=== PATIENT | male | born 1950 | race Caucasian/White ===

== ENCOUNTER 2025-08-07 10:22 | Emergency (ER) | payer MEDICARE, OTHER, SELFPAY ==
--- NOTE | 2025-08-07 10:24 | ED.WOUNDLAC ---
HPI - Wound/Laceration General Chief Complaint: Wound/Laceration Stated Complaint: Laceration Time Seen by Provider: 08/07/25 10:23 Source: patient Mode of arrival: ambulatory Limitations: no limitations History of Present Illness HPI narrative: Patient is a 74-year-old male with a right hand wound laceration after an accident at home. No other issues. His tetanus booster needed today. No other issues. Area will not stop bleeding. Onset (ago): day(s) (One) Location: other (Right palm) Place: home Patient tetanus UTD: No Context: accidental and fall Associated symptoms: pain Treatments prior to arrival: bandage Related Data Home Medications ?Medication ?Instructions ?Recorded ?Confirmed ?Last Taken ?Type amlodipine 10 mg tablet mg 08/07/25 Unknown History magnesium 200 mg tablet 200 mg PO DAILY 08/07/25 08/07/25 Unknown History tamsulosin 0.4 mg capsule mg PO 08/07/25 Unknown History Allergies Allergy/AdvReac Type Severity Reaction Status Date / Time No Known Allergies Allergy Verified 08/07/25 11:14 Review of Systems Review of Systems: All systems reviewed & are unremarkable except as noted in HPI and below Constitutional: Constitutional: Reports no additional constitutional complaints Eyes: Eyes: Reports no additional eye complaints ENT: Reports system reviewed and no additional complaints, except as documented Cardiovascular: Cardiovascular: Reports no additional cardiovascular complaints Respiratory: Respiratory: Reports no additional respiratory complaints Gastrointestinal: Gastrointestinal: Reports no additional gastrointestinal complaints Genitourinary: Genitourinary: Reports no additional male genitourinary complaints Musculoskeletal: Musculoskeletal: Reports no additional musculoskeletal complaints Integumentary/Breasts: Skin/Breast: Reports system reviewed and no additional complaints, except as docu Neurologic: Reports system reviewed and no additional complaints, except as documented Psychiatric: Psychiatric: Reports no additional psychiatric complaints Endocrine: Endocrine: Reports no additional endocrine complaints Hematologic/Lymphatic: Hematologic/Lymphatic: Reports no additional hematologic/lymphatic complaints Allergic/Immunologic: Allergic/Immunologic: Reports no additional allergic/immunologic complaints Exam Const: General: healthy appearing Nutritional Appearance: well nourished Orientation/consciousness: patient oriented x3 HENMT: Head: normal to inspection Ears: external ears normal Face/Nose/Sinus: Normal external nose present Eyes: Conjunctivae: conjunctivae normal Pupils: Equal, round and reactive pupils present EOM: EOMs intact bilaterally Neck: Neck: normal visual inspection Chest: Chest palpation & inspection: normal inspection of the chest Resp: Effort & Inspection: normal respiratory effort and not labored Auscultation: clear to auscultation bilaterally and no crackles Cardio: Rate: regular rate Rhythm: regular rhythm Heart sounds: no murmurs GI: Inspection: non-distended GI Palp: Yes Soft to palpation and No Tenderness to palpation present (GI) Auscultation: normal bowel sounds Back/Spine/Pelvis: Back: no CVA tenderness Skin: General skin exam: normal color Rashes: no rashes Wounds: wound noted Other: Right hand flexor surface/palm mid palm has a 3.5 cm linear laceration with some irregularity and soft tissue/fat appreciated for depth and slight bleeding; patient also had a right eyebrow and right knee abrasion all from the fall today Neuro: General: patient oriented x3, moves all extremities and no meningeal signs Extrem: General: normal to inspection Psych: Mental Status: mental status grossly normal Affect: normal affect Attitude: cooperative Course Vital Signs Vital signs: Vital Signs Temperature 36.9 C 08/07/25 11:17 Pulse Rate 78 08/07/25 11:17 Respiratory Rate 16 08/07/25 11:17 Blood Pressure 131/59 L 08/07/25 11:17 Pulse Oximetry 98 08/07/25 11:17 Oxygen Delivery Room Air 08/07/25 11:17 Temperature 36.9 C 08/07/25 11:17 Pulse Rate 78 08/07/25 11:17 Respiratory Rate 16 08/07/25 11:17 Blood Pressure 131/59 L 08/07/25 11:17 Pulse Oximetry 98 08/07/25 11:17 Oxygen Delivery Room Air 08/07/25 11:17 Procedures Other Procedure Procedure 1: Other Procedure: Right palm laceration: Area cleaned with chlorhexidine the/iodine, anesthesia with 6 cc lidocaine, x7 running stitching 4-0 nylon PS 3, x1 simple suture same string, antibiotic ointment and a bandage placed, patient tolerated procedure well and no complications MDM - Wound/Laceration MDM Narrative Medical decision making narrative: Patient is a 74-year-old male with a right palm laceration after home accident. Suture area closed. Tetanus booster. Discharge Plan Discharge Clinical Impression: Hand laceration Qualifiers: Encounter type: initial encounter Foreign body presence: without foreign body Laterality: right Qualified Code(s): S61.411A - Laceration without foreign body of right hand, initial encounter Patient Disposition: Home Condition: Stable Instructions: Antibiotic Form, Laceration (DC) Additional Instructions: Please have stitches removed in 8-10 days. Use triple antibiotic ointment on the area daily. Discussed with your primary doctor if your still having trouble moving fingers or making a fist in the next few days. You will need an MRI of this hand to look for tendons and ligaments. Patient Language: Ivorian Prescriptions: New cephalexin 500 mg capsule 500 mg PO BID 7 Days Qty: 14 0RF No Action tamsulosin 0.4 mg capsule PO amlodipine 10 mg tablet magnesium 200 mg tablet 200 mg PO DAILY Follow-up/Referrals: Harms,Aries Tilley M.D. [Primary Care Provider] Time of Disposition: 12:46
--- OUTSIDE RECORDS SUMMARY | 2025-08-07 11:07 | XMS_ITS | Clinical Summary ---
Author Organization [facility] Address [address] [place] [address] Care Team Providers Care Brick Sorter Name Role Phone Aries Morales MD Primary Care Provider [phone] Allergies No known active allergies Medications albuterol HFA (Ventolin HFA) 90 mcg/actuation inhalerIndication s:Wheezing Inhale 2 puffs every 4 (four) hours as needed for wheezing or shortness of breath 8 g 5 0 Active Breo Ellipta 100-25 mcg/dose diskus inhaler 0 Active magnesium 30 mg tablet Take 1 tablet (30 mg total) by mouth 2 (two) times a day Active benzonatate (TESSALON) 100 mg capsuleIndication s:Cough Take 1 capsule (100 mg total) by mouth 3 (three) times a day as needed for cough 42 capsule 4 Active amLODIPine (NORVASC) 10 mg tabletIndications :Essential hypertension Take 1 tablet (10 mg total) by mouth daily 90 tablet 2 5 Active tamsulosin (FLOMAX) 0.4 mg extended release capsule TAKE 1 CAPSULE BY MOUTH EVERY DAY 90 capsule 3 5 Active tirzepatide, weight loss, (Zepbound) 2.5 mg/0.5 mL pen injector Inject 0.5 mL (2.5 mg total) under the skin once a week 2 mL 5 Active Active Problems Problem Noted Date Diagnosed Date Class 2 severe obesity due t o excess calories with serious comorbidity and body mass index (BMI) of 39.0 to 39.9 in adult 01/23/2024 Assessment & Plan (02/05/2025 9:46 AM CDT): Encouraged heart healthy diet and lifestyle. Advised 150 min/week of aerobic exercise. Assessment & Plan (01/23/2024 11:36 AM CDT): Reviewed lifestyle recommendations. Reviewed healthy weight recommendations. Discussed weight loss medications. Handouts provided with dietary recommendations. Will continue to monitor. Benign prostatic hyperplasia with nocturia 01/22 Assessment & Plan (02/05/2025 9:46 AM CDT): Stable and well controlled. Will continue on Flomax. Will continue to monitor. Assessment & Plan (01/23/2024 11:37 AM CDT): Symptomatically controlled with Flomax and will continue. PSA today as well. Encounter for screening for lipoid disorders Assessment & Plan (01/23/2024 11:34 AM CDT): Reviewed lipid panel. Looks good. Again reviewed lifestyle recommendations. Will continue to monitor. Essential hypertension 04/29/2020 Assessment & Plan (02/05/2025 9:46 AM CDT): Blood pressure stable and well controlled. Will continue on Amlodipine and refill. Will continue to monitor. Orders: amLODIPine (NORVASC) 10 mg tablet; Take 1 tablet (10 mg total) by mouth daily Assessment & Plan (01/23/2024 11:34 AM CDT): Better when rechecked by me. Reviewed lifestyle recommendations and handouts provided. Continue amlodipine. Will continue to monitor. Assessment & Plan (11/03/2022 9:16 AM BRANCH LEAD): Condition is stable Discussed/ordered labs, encouraged healthy, low carbohydrate lifestyle and at least 150min/week of exercise, continue on amlodipine 10 mg daily. Assessment & Plan (04/29/2020 9:39 AM CDT): Well controlled with current medication. 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 Encouraged patient to use inhalers PRN and follow up as needed. Severe obstructive sleep apnea 05/04/2019 Assessment & Plan (02/05/2025 9:46 AM CDT): Continues to use CPAP with great relief and no daytime fatigue. Will continue to monitor Assessment & Plan (01/23/2024 11:35 AM CDT): 100% compliant with CPAP and will continue. 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 Uses albuterol on a daily bases with some relief after talking with patient, it is most likely that he has obstructive sleep apnea. I recommend that he follow up with Dr. Morales and get a sleep study and some pulmonary function test. Will treat him with a course of steroids And antibiotics will give a DuoNeb treatment today Take your antibiotic as directed You may take a cough suppressant to calm your cough (dayquil, delsym, or nyquil) If your cough is productive or you have tight chest congestion with thick mucus- you can use a cough expectorant like Mucinex Benadryl/Zyrtec can be used to dry up a runny nose along with a nasal spray like azelastine or mometasone.. The use of Chlorpheniramine (antihistamine) plus pseudoephedrine (decongestant) has been proven to be helpful. Avoid environmental triggers and allergen Drink plenty of fluids and get plenty of rest Tylenol/Motrin for pain/fever If you are not better in the next 5 days, follow up w PCP. Bilateral impacted cerumen 02/22/2019 1 12/26/2019 Assessment & Plan (02/22/2019 10:36 AM CDT): Excessive Ear Wax Prevention Cerumen accumulation or excessive ear wax can cause symptoms like-Hearing loss ?Earache ?Ear fullness ?Itchiness ?Reflex cough ?Dizziness ?Tinnitus Normal ears use a cotton ball dipped in mineral oil, olive oil, Baby oil, or Peculiar oil and place in the external canal for 10 to 20 minutes once per week. For Chronic cerumen impactions can perform on a scheduled baseis-3 drops of olive oil or Baby oil in each ear, three times daily for Three weeks, Three times per year. Routine cleaning of the ears by a health professional every 6 to 12 months is also suggested. Patients should be instructed that chronic use of cotton swabs or cerumenolytics should not be performed. Cerumenolytics are safe to use in patients with NO history of infections, perforations, or otologic surgery. Cerumenolytics should be avoided if tympanic membrane damage is suspected. If a patient has a history of drainage from the ear, ear pain, or frequent ear infections earlier in life, then the tympanic membrane may be impaired and cerumenolytics should not be employed. If safe for you, use Debrox drops, Hydrogen peroxide or Benzalkonium Chloride softening agents Wheezing 02/22/2019 10/25/2020 Sleep disturbances 02/22/2019 0 Encounters Date Type Department Care Team Description 07/09/2025 10:30 AM CDT Office Visit [facility] [address] [place] [address] [address] [place] [address] Vandana Maher MD Severe obstructive sleep apnea (Primary Dx); Hypersomnia; Severe obesity (BMI 35.0-35.9 with comorbidity) (HCC) from Last 3 Months Immunizations Immunization Administration Dates Next Due Hep B Vaccine 01/02/2018,08/29/2017,06/27/2017 Influenza, Quad, Adjuvantate d, Intramuscular 07/18/2023,09/01/2021 Influenza, Quadrivalent, Hig h Dose, Preservative Free, Intrr 06/30/2022,08/02/2020 Influenza, Trivalent, High D ose, Split, Preservative Free, Intramuscular 07/22/2024,09/06/2019,09/06/2018 Influenza, Unspecified 08/21/2021,2019,09/06/2019,11/14(Deferred: Patient Refused),09/07/2008 Moderna Sars-cov-2 Bivalent Vaccine 50 Mcg/0.5 mL (12+ YRS)-Blue/Edward 08/23/2022 Pneumococcal Conjugate PCV 13 09/07/2018 Pneumococcal Polysaccharide PPV23 09/13/2019 Sars-cov-2 Covid-19 Mrna, Bi valent, Original/omicron Ba.1 07/22/2024 Tdap 06/27/2017 ZOSTER Recombinant 08/01/2020,05/30/2020 Surgical History Surgery Date Site/Laterality Comments CHOLECYSTECTOMY gallbladder surgery KNEE SURGERY 11/07/2013 - 11/06/2014 Left Knee surgery COLONOSCOPY 10/20/2010 Medical History Medical History Date Comments Hypertension Chronic constipation Family History Medical History Relation Name Comments Diabetes Father Liver cancer Father Other Father cancer at young age; Relation Name Status Comments Father Mother Social History Tobacco Use Types Packs/Day Years Used Date Smoking Tobacco: Never Smokeless Tobacco: Never Tobacco Cessation:Counseling Given: Not Answered Alcohol Use Standard Drinks/Week Comments Yes 0 (1 standard drink = 0.6 oz pur e alcohol) PHQ-2 Answer Date Recorded PHQ-2 Total Score (If total score is 3 or more points, staff should administer the PHQ-9) 0 02/05/2025 Sex and Gender Information Value Date Recorded Sex Assigned at Not on file Legal Sex Male 11:51 PM BRANCH LEAD Gender Identity Not on file Sexual Orientation Not on file Obstetrics History Last Filed Vital Signs Vital Sign Reading Time Taken Comments Blood Pressure 156/78 07/09/2025 10:18 AM CDT Pulse 52 07/09/2025 10:18 AM CDT Temperature 37.1 C (98.7 F) 08/10/2024 10:21 AM CDT Respiratory Rate 18 02/05/2025 9:20 AM CDT Oxygen Saturation 90% 07/09/2025 10:18 AM CDT Inhaled Oxygen Concentration - - Weight 133.8 kg (295 lb) 07/09/2025 10:18 AM CDT Height 188 cm (6' 2) 07/09/2025 10:18 AM CDT Body Mass Index 37.88 07/09/2025 10:18 AM CDT Plan of Treatment Health Maintenance Due Date Last Done Comments Covid-19 Vaccine (2024-12 6 season) 2025 07/22/2024, 08/10/2023, 08/23/2022, Additional history exists Depression Screening 02/05/2026 02/05/2025, 01/23/2024, 11/03/2022, Additional history exists Fall Risk Assessment 02/05/2026 02/05/2025, 01/23/2024, 11/03/2022, Additional history exists Well Visit 65+ 02/05/2026 02/05/2025, 01/05, 01/23/2021, Additional history exists DTaP/Tdap/Td Vaccine (2 - Td or Tdap) 06/27/2027 06/27/2017 Colon Cancer Screening-Colonoscopy 03/19/2031 03/19/2021, 10/20/2010, 10/20/2010 Hepatitis B Screening Completed 01/02/2018 , 08/29/2017, 06/27/2017 Pneumococcal vaccine 65+ Completed 09/13/2019, 11/2017 Zoster Vaccine Completed 08/01/2020, 05/30/2020 Hepatitis C Screening Completed 01/23/2021 Colon Cancer Screening-CT Colonography Discontinued 03/19/2021, 10/20/2010, 10/20/2010 Colon Cancer Screening-DNA Stool Discontinued 03/19/2021, 10/20/2010, 10/20/2010 Colon Cancer Screening-FIT Discontinued 03/19, 10/20/2010, 10/20/2010 Colon Cancer Screening-Sigmoidoscopy Discontinued 03/19/2021, 10/20/2010, 10/20/2010 Influenza Vaccine Completed 07/25/2025, , 07/18/2023, Additional history exists Procedures Procedure Name Priority Date/Time Associated Diagnosis Comments COLONOSCOPY 03/19/2021 8:20 AM CDT HEPATITIS C ANTIBODY Routine 01/23/2021 10:19 AM CDT Encounter for hepatitis C screening test for low risk patient from Last 3 Months or Most Recently Relevant to Health Maintenance Results * COLONOSCOPY (03/19/2021 8:20 AM CDT) Anatomical Region Laterality Modality Other Narrative Procedure Note Loc Walls MD - 03/19/2021 8:20 AM CDT [facility] Patient Name: Loc Reed Procedure Date: 03/19/2021 8:20 AM Date of : 1950 Admit Type: Outpatient Age: 70 Gender: Male Attending MD: Loc Walls M.D. Room: [facility] ENDOSCOPY ROOM 2 Note Status: Finalized Patient Profile: Refer to note in patient chart for documentation of history and physical. Procedure: Colonoscopy Indications: Screening for colorectal malignant neoplasm, Last colonoscopy: October 2010 Referring MD: Aries Morales M.D. Providers: Loc Walls M.D. Impression: - Hemorrhoids found on perianal exam. - One 3 mm polyp in the descending colon, removedwith a cold snare. Resected and retrieved. - The examination was otherwise normal. Recommendation: - Discharge patient to home. - Resume previous diet. - Continue present medications. - Await pathology results. - Repeat colonoscopy in 10 years for screening purposes. - Return to primary care physician as previously scheduled. Medicines: Propofol per Anesthesia Complications: No immediate complications. Estimated Blood Loss: Estimated blood loss: none. Procedure: Pre-Anesthesia Assessment: - This assessment was completed [Time ofAssessment] prior to the administration of sedation. The benefits, risks and alternatives of theprocedure and sedation were discussed and informed consentwas obtained. All questions were answered. Please referto the signed informed consent document in the medical record. The bowel preparation used was Miralax via single dose instruction. The bowel preparation used was bisacodyl tablets via single dose instruction.The scope was passed under direct vision. TheColonoscope [id number] was introduced through the anus and advanced to the the cecum, identified by appendiceal orifice and ileocecal valve. The colonoscopy was performed without difficulty. The patient tolerated the procedure well. The qualityof the bowel preparation was adequate to identifypolyps. Findings: Hemorrhoids were found on perianal exam. A 3 mm polyp was found in the descending colon. The polyp wassessile. The polyp was removed with a cold snare. Resection and retrieval were complete. Verification of patient identification for the specimen was done by the physician and nurse using the patient's name and birthdate. Estimated blood loss was minimal. The exam was otherwise without abnormality. Electronically signed by Lco Walls M.D. Loc Walls M.D. 03/19/2021 9:58:20 AM Number of Addenda: 0 Note Initiated On: 03/19/2021 8:20 AM Procedure Code(s): --- Professional --- 78033, Colonoscopy, flexible; with removal of tumor(s), polyp(s), or other lesion(s) by snare technique Diagnosis Code(s): --- Professional --- K64.9, Unspecified hemorrhoids Z12.11, Encounter for screening for malignant neoplasm of colon K63.5, Polyp of colon CPT copyright 2019 [employer]. All rights reserved. The codes documented in this report are preliminary and upon implementation consultant reviewmay be revised to meet current compliance requirements. Recognized by the [employer] for promoting quality in endoscopy Loc Walls MD ENDOSCOPY PROCEDURES Final Re sult * Hepatitis C antibody (01/23/2021 10:19 AM CDT) Hep C Ab Nonreactive Nonreactive [facility] Comment: Interpretive Data Nonreactive: Antibodies to HCV not detected. Does NOT exclude the possibility of recent exposure to HCV. Equivocal: Equivocal for HCV antibodies. Supplemental molecular testing will be automatically performed to determine infection status in accordance with current CDC screening recommendations. Reactive: Positive for HCV antibodies. This may represent current or past HCV infection. Supplemental molecular testing will be automatically performed to determine current infection status in accordance with current CDC screening recommendations. Interpretive data was last revised on 2020. Blood specimen (specimen) 01/23/2021 10:19 AM CDT 01/23/2021 3:54 PM CDT us Ashley Conway NP LAB MICROBIOLOGY - GENERAL ORDERABLES Final Result [facility] [id number] Department [place] [address] from Last 3 Months or Most Recently Relevant to Health Maintenance Insurance MEDICARE Member Subscriber Plan / Payer (Ef fective 2014-) Name:LOC REED Member ID:[id number] Relation to Subscriber:Self Name:Loc Reed Subscriber ID:[id number] Payer ID:[id number] Group ID:Not on file Type:MEDICARE TRADITIONAL Address: [address] [employer] Member Subscriber Plan / Payer (Ef fective 2015-Present) Name:Loc Reed Relation to Subscriber:Self Name:Loc Reed Payer ID:[id number] Group ID:Not on file Type:COMMERCIAL Address: [facility] [address] [place], [place]) [address] [place] [address] MEDICARE Member Subscriber Plan / Payer (Ef fective 2014-) Name:LOC REED Member ID:[id number] Relation to Subscriber:Self Name:Loc Reed Subscriber ID:[id number] Payer ID:[id number] Group ID:Not on file Type:MEDICARE TRADITIONAL Address: [place] [id number] [employer] MEDICARE [employer] Advance Directives For more information, please contact: [phone] * Full Code (Latest Code Status on File) Date Activated Date Inactivated Comments 03/19/2021 7:59 AM 03/19/2021 2:53 PM * Full Code Date Activated Date Inactivated Comments 03/19/2021 7:59 AM 03/19/2021 7:59 AM Care Teams Brick Sorter Relationship Specialty Start Date End Date Aries Morales MD [address] [place] [address] PCP - General 06/05/13
--- OUTSIDE RECORDS SUMMARY | 2025-08-07 11:07 | XMS_ITS | Clinical Summary ---
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
--- OUTSIDE RECORDS SUMMARY | 2025-08-07 11:07 | XMS_ITS | Encounter Summary ---
Author Organization [facility] Address [address] [place] [address] Care Team Providers Care Keg Filler Name Role Phone Unavailable Primary Care Provider Unavailabl e Encounter Details Date Type Department Care Team (Late st Contact Info) Description 02/01/2000 Outpatient Historical [facility] Noman Ny MD 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
--- OUTSIDE RECORDS SUMMARY | 2025-08-07 11:07 | XMS_ITS | Encounter Summary ---
Author Organization [facility] Address 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
[2025-08-07 11:17] VITALS: BP 131/59; PULSE 78; RESP 16; TEMP 36.9; O2SAT 98
[2025-08-07] MEDS: TETANUS,DIPHTHERIA,AC PERTUSSIS ADULT 0.5 ML (ADACEL) IM (11:49)
[2025-08-07] MEDS: NEOMYCIN/POLYMYXIN/BACITRACIN OINTMENT PACKET 1 PACKET TOPICAL (12:00)
[2025-08-07] MEDS: LIDOCAINE 1% LOCAL INJ 10 ML VIAL 8 ML INFILTRATE (12:00)
--- OUTSIDE RECORDS SUMMARY | 2025-08-07 12:03 | XMS_ITS | Clinical Summary ---
Author Organization [facility] Address [address] [place] [address] Care Team Providers Care Spout Tender Name Role Phone Aries Morales MD Primary Care Provider [phone] Allergies No known active allergies Medications albuterol [...] monitor. Assessment & Plan (11/03/2022 9:[address] MANAGER): Condition is stable Discussed/ordered labs, encouraged healthy, low carbohydrate lifestyle and at least 150min/week of exercise, continue on amlodipine 10 mg daily. Assessment & Plan (04/29/2020 9:39 AM CDT): Well controlled with current medication. 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 Assessment & Plan (11/03/2022 9:[address] MANAGER): Good response with nightly CPAP use, following [...] (02/18/2021): Added automatically from request for surgery [id number] Colon cancer screening 10/25/202001/22 Bronchitis 02/22/2019 10/25/2020 [...] mineral oil, olive oil, Baby oil, or [place] oil and place in the external canal [...] Description 07/09/2025 10:30 AM CDT Office Visit [facility] [address] [place] [address] [address] [place] [address] Vandana Maher MD Severe obstructive [...] on file Legal Sex Male 11:[address]NAGER Gender Identity Not on file Sexual Orientation [...] Walls MD - 03/19/2021 8:20 AM CDT [facility] Patient Name: Loc Reed Procedure Date: 03/19/2021 8:20 AM Date of : 1950 Admit Type: Outpatient Age: 70 Gender: Male Attending MD: Loc Walls M.D. Room: [facility] 2 Note Status: Finalized [...] scope was passed under direct vision. TheColonoscope [id number] was introduced through the anus and advanced [...] was otherwise without abnormality. Electronically signed by Loc Walls M.D. Loc Walls M.D. 03/19/2021 9:58:20 AM Number of Addenda: 0 Note Initiated On: 03/19/2021 8:20 AM Procedure Code(s): --- Professional --- 64787, Colonoscopy, flexible; with removal of tumor(s), polyp(s), or other lesion(s) by snare technique Diagnosis Code(s): --- Professional --- K64.9, Unspecified hemorrhoids Z12.11, Encounter for screening for malignant neoplasm of colon K63.5, Polyp of colon CPT copyright 2019 [employer]. All rights reserved. The codes documented in this report are preliminary and upon director visual reviewmay be revised to meet current compliance requirements. Recognized by the [employer] for promoting quality [...] - GENERAL ORDERABLES Final Result RIGO [facility]ERT[facility] [address] [place] [address] from Last 3 Months or Most Recently Relevant to Health Maintenance Insurance MEDICARE Member Subscriber Plan / Payer (Ef fective 2014-) Name:LOC REED Member ID:[id number] Relation to Subscriber:Self Name:Loc Reed Subscriber ID:[id number] Payer ID:[id number] Group ID:Not on file Type:MEDICARE TRADITIONAL Address: [address] [employer] Member Subscriber Plan / Payer (Ef fective 2015-Present) Name:Loc Reed Relation to Subscriber:Self Name:Loc Reed Payer ID:[id number] Group ID:Not on file Type:COMMERCIAL Address: [facility] [address] [place], [place] ([place]) [address] [address] MEDICARE Member Subscriber Plan / Payer (Ef fective 2014-) Name:LOC REED Member ID:[id number] Relation to Subscriber:Self Name:Loc Reed Subscriber ID:[id number] Payer ID:[id number] Group ID:Not on file Type:MEDICARE TRADITIONAL Address: [place] [id number] [employer] MEDICARE [employer] Advance Directives For more information, please contact: [phone] * Full Code (Latest Code Status on File) Date Activated Date Inactivated Comments 03/19/2021 7:59 AM 03/19/2021 2:53 PM * Full Code Date Activated Date Inactivated Comments 03/19/2021 7:59 AM 03/19/2021 7:59 AM Care Teams Spout Tender Relationship Specialty Start Date End Date Aries Morales MD [address] [place] [address] PCP - General 06/05/13
--- OUTSIDE RECORDS SUMMARY | 2025-08-07 12:04 | XMS_ITS | Clinical Summary ---
Author Organization [facility] Address [address] [place] [address] Care Team Providers Care Ela Teacher Name Role Phone Unavailable Primary Care Provider Unavailabl e Source Comments [facility],non-owned Affiliates and Associated Physician Practices is amultiple site organization consisting of ambulatory clinics and hospital sitesin [place], [place], [place] and [place]. This disclosure is being madepursuant to the Care Everywhere program and may not contain all information available regarding this patient. Last updated 18.[facility] Social History Tobacco Use Types Packs/Day Years Used Date Smoking Tobacco: Never Assessed Sex and Gender Information Value Date Recorded Sex Assigned at Not on file Legal Sex Male 12:27 PM CDT Gender Identity Not on file Sexual Orientation Not on file Plan of Treatment Health Maintenance Due Date Last Done Comments COLOGUARD (AGES 45-75) - COL ON CA SCREENING 1950 COLON MONITORING 1950 COLONOSCOPY - COLON CA SCREENING 1950 CT COLONOGRAPHY - COLON CA SCREENING 1950 Colorectal Cancer Screening 1950 FIT - COLON CA SCREENING 1950 FLEX SIG - COLON CA SCREENING 1950 LIPID TESTING 1950 HEPATITIS C SCREENING 11/29/1967 DTAP/TDAP/TD VACCINES (1 - Tdap) 1968 PNEUMOCOCCAL VACCINE 50+ (1 of 1 - PCV) 1999 ZOSTER VACCINE (1 of 2) 1999 DEPRESSION SCREENING 11/07/2024 Respiratory Syncytial Virus (RSV) Vaccine Pt: or over 60 yrs (1 - 1-dose 75+ series) 2024 COVID-19 VACCINE (1 - 2023-2 5 season) 2025 INFLUENZA VACCINE (#1) 2025 HEPATITIS B VACCINE Aged Out No longe r eligible based on patient's age to complete this topic HIB VACCINE Aged Out No longer eligi ble based on patient's age to complete this topic HPV VACCINE Aged Out No longer eligi ble based on patient's age to complete this topic MENINGOCOCCAL (Group B) VACC INE SHARED DECISION-MAKING Aged Out No longer eligibl e based on patient's age to complete this topic MENINGOCOCCAL GROUPS A/C/Y/W VACCINE Aged Out No longer eligible b ased on patient's age to complete this topic Insurance MEDICARE [employer] [place]
--- OUTSIDE RECORDS SUMMARY | 2025-08-07 12:04 | XMS_ITS | Encounter Summary ---
Author Organization [facility] Address 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
--- OUTSIDE RECORDS SUMMARY | 2025-08-07 12:04 | XMS_ITS | Encounter Summary ---
Author Organization [facility] Address [address] [place] [address] Care Team Providers Care House Director Name Role Phone Unavailable Primary Care Provider Unavailabl e Encounter Details Date Type Department Care Team (Late st Contact Info) Description 06/20/2020 Lab Requisition [facility] Lab [address] [place] [id number] [place] [address] [place] [address] Social History Tobacco Use Types Packs/Day Years Used Date Smoking Tobacco: Never Assessed Sex and Gender Information Value Date Recorded Sex Assigned at Not on file Legal Sex Male 12:27 PM CDT Gender Identity Not on file Sexual Orientation Not on file documented as of this encounter Plan of Treatment Not on file documented as of this encounter Procedures Procedure Name Priority Date/Time Associated Diagnosis Comments DERMATOPATHOLOGY Routine 06/19/2020 12:0 0 AM CDT documented in this encounter Results * DERMATOPATHOLOGY (06/19/2020 12:00 AM CDT) Case Report Dermatopathology Report Case: [id number] Authorizing Provider: Shahida Gudino MD Collected: 06/19/2020 12:00 AM Ordering Location: [facility] Derm[facility] Lab Received: 06/20/2020 01:45 PM Pathologist: Amanda Munoz MD Specimen: Skin, right posterior shoulder 0 3:41 PM CDT DERMATOPATHOLOGY LABORATORY Final Diagnosis Specimen A. SKIN, right posterior shoulder: BENIGN VERRUCOUS KERATOSIS (L82.1) OVERLYING CUTANEOUS HORN (L85.8) 0 3:41 PM CDT DERMATOPATHOLOGY LABORATORY at 1541 CDT Clinical History Cutaneous horn vs irritated seborrheic keratosis vs squamous cell carcinoma. 0 3:41 PM CDT DERMATOPATHOLOGY LABORATORY Gross Description Specimen A: Received is one formalin filled container labeled with the patient's name and designated right posterior shoulder. The specimen consists of a shave biopsy measuring [id number] mm, bisected. Jar 0+. 0 3:41 PM CDT DERMATOPATHOLOGY LABORATORY Microscopic Description Specimen A. SKIN, right posterior shoulder: Sections show hyperkeratosis, papillomatosis, hypergranulosis, and acanthosis. These histological findings can be seen in a verruca vulgaris or a seborrheic keratosis. There is a column of marked compact hyperkeratosis. 0 3:41 PM CDT DERMATOPATHOLOGY LABORATORY Disclaimer An external and internal positive and negative controls are appropriate for the histochemical, immunohistochemical and immunofluorescence stain(s) in this case (if any), except where stated explicitly. The performance characteristics of the stain(s) cited in this report were developed and its performance characteristic determined by the Dermatopathology Laboratory at [facility], directed by Dr. Angie Huerta. These tests need not be, and therefore are not, approved by the [place] Food and Drug Administration. The tests are used for clinical purposes. Billing Codes Specimen Charges Stain Charges 69966 1 0 3:41 PM CDT DERMATOPATHOLOGY LABORATORY Embedded Images 0 3:41 PM CDT DERMATOPATHOLOGY LABORATORY Pathology/Cytolog y TISSUE SPECIMEN FROM SKIN / Unknown 06/19/2020 06/20/2020 1:45 PM CDT us Shahida Gudino MD LAB - PATHOLOGY/CYTOLOGY ORDERABLES Final Result DERMATOPATHOLOGY LABORATORY [facility] - Department of Dermatology Lead Manufacturing Engineer [place] [address], [facility] [phone] documented in this encounter Visit Diagnoses Not on filedocumented in this encounter
--- OUTSIDE RECORDS SUMMARY | 2025-08-07 12:04 | XMS_ITS | Encounter Summary ---
Author Organization [facility] Address 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
--- OUTSIDE RECORDS SUMMARY | 2025-08-07 12:04 | XMS_ITS | Clinical Summary ---
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
== END 2025-08-07 12:53 | disposition home or self-care (01) ==
PROVIDERS: Emergency Provider Emergency Medicine; PCP Family Medicine
DX: S61.411A Laceration without foreign body of right hand, initial encounter (principal); W45.8XXA Other foreign body or object entering through skin, initial encounter; Z79.899 Other long term (current) drug therapy; Z23 Encounter for immunization
CPT/HCPCS: 12002; 90471; 90715; 99283; J2003